=== PATIENT | male | born 1950 | race Caucasian/White ===

== ENCOUNTER 2017-11-21 09:15 | Day surgery (SDC) | payer BC ==
[2017-11-17 10:58] VITALS: BMI 28.6
[~2017-11-21 09:15] MED LIST: LACTATED RINGERS 1,000 ML IV SCH; LIDOCAINE 1% 20 ML VIAL (10MG/ML) FOR IV START INTRADERMA PRN; MIDAZOLAM 2 MG/2 ML VIAL IV PRN
[2017-11-21 10:15] VITALS: RESP 16; TEMP 97
[2017-11-21] MEDS ORDERED: GLYCOPYRROLATE 0.2 MG/ML 2 ML VIAL ONE (10:52)
[2017-11-21] MEDS ORDERED: LIDOCAINE 1% INJ 10MG/ML (20 ML MDV) ONE (10:52)
[2017-11-21] MEDS ORDERED: PROPOFOL 10 MG/ML 20 ML VIAL IV ONE (10:52)
--- NOTE | 2017-11-21 11:11 | P.PCN ---
Date of Procedure: 11/21/17 Procedure(s) Performed: Procedure: Esophagogastroduodenoscopy and biopsy. Preoperative diagnosis: Chronic reflux and dysphagia. Postoperative diagnosis: 1. Small sliding hiatal hernia with low-grade esophagitis but no strictures or ulcers or Posada's esophagus. 2. Mild antral gastritis. 3. Multiple biopsies obtained from the duodenum, antrum and esophagus. Preparation sedation: Was provided by anesthesia. Brief clinical history: The patient is a 66-year-old male who is scheduled for this evaluation because of intermittent dysphagia, especially when he is off his PPI. The patient has taken omeprazole for the last few years for reflux symptoms with good control of his symptoms. It seems that his dysphagia issues occurs whenever he tries to go off omeprazole. No weight loss or other alarm symptoms. He had an upper endoscopy more than 10 years ago. Procedure: With the patient on his left lateral decubitus position and after informed consent and adequate sedation, I passed the Olympus-GIF 160 video upper endoscope through the cricopharyngeus down the esophagus. GE junction was around 43 cm from the incisors and there was a small sliding hiatal hernia. The esophagus showed linear erosions covering most of the length of the esophagus consistent with LA grade B esophagitis with no ulcers, strictures or Posada's esophagus. The endoscope was then passed to the rest of the stomach which was insufflated with air and inspected in detail including the retroflex view in the cardia. There was some mottling and erythema in the antrum but no ulcers or erosions. Pyloric channel, duodenal bulb, post bulbar area and descending duodenum appeared within normal limits. I obtained biopsies from the duodenum, antrum and esophagus then the endoscope was withdrawn. The patient tolerated the procedure well. Plan: The patient was reassured. Will await biopsy results. I will see him in follow-up in the office and make additional recommendations based on his course. I will keep you updated on his progress.
[2017-11-21 12:03] VITALS: BP 143/84; PULSE 45
== END 2017-11-21 12:08 | disposition home or self-care (01) ==
LOC: ORWHC2ENDO 09:15
DX: K21.0 Gastro-esophageal reflux disease with esophagitis (principal); K29.50 Unspecified chronic gastritis without bleeding; K44.9 Diaphragmatic hernia without obstruction or gangrene; Z79.1 Long term (current) use of non-steroidal anti-inflammatories (NSAID); Z79.899 Other long term (current) drug therapy
CPT/HCPCS: 43239; 88305; J2001; J2704

== ENCOUNTER 2019-09-26 09:57 | Day surgery (SDC) | payer MEDICARE ==
[2019-09-25 08:29] VITALS: BMI 27.0
[~2019-09-26 09:57] MED LIST changes: +DEXAMETHASONE SOD PHOSPHATE 10 MG/ML 1 ML VIAL IV ONE; +HYDROmorphone 0.5 MG/0.5 ML SYRINGE IVP PRN; -LIDOCAINE 1% 20 ML VIAL (10MG/ML) FOR IV START INTRADERMA PRN; -MIDAZOLAM 2 MG/2 ML VIAL IV PRN; +ONDANSETRON 4 MG/2 ML VIAL IVP ONE
[2019-09-26 10:25] VITALS: TEMP 97.7
[2019-09-26] MEDS ORDERED: LIDOCAINE 1% (10MG/ML) FOR IV START INTRADERMA ONE (10:25)
[2019-09-26] MEDS ORDERED: PROPOFOL 10 MG/ML 20 ML VIAL IV ONE (11:10)
[2019-09-26 11:44] VITALS: PULSE 52
--- NOTE | 2019-09-26 11:44 | P.PCN ---
Date of Procedure: 09/26/19 Description of Procedure: BRIEF HISTORY: Patient is a 68-year-old male presenting for outpatient colonoscopy for colitis and abdominal pain. Reports recent problems with abdominal pain. Treated with antibiotic therapy for diverticulitis with improvement in symptoms. Last colonoscopy 6 years ago with polyp removed. PROCEDURE PERFORMED: Colonoscopy. PREOPERATIVE DIAGNOSIS: Abdominal pain, colitis, less colonoscopy 6 years ago. ESTIMATED BLOOD LOSS: Minimal. IV sedation per Anesthesia. PROCEDURE: After informed consent was obtained, the patient, was brought into the endoscopy unit. IV sedation was administered by Anesthesia under continuous monitoring. Digital rectal examination was normal. Initially the Olympus CF-190 flexible video colonoscope was then inserted in the rectum, gradually advanced into the cecum without any difficulty. Careful examination was performed as the scope was gradually being withdrawn. Ileocecal valve and the appendiceal orifice were visualized and appeared normal. Prep was excellent. Mucosa of the cecum, ascending colon, transverse colon, descending colon, sigmoid colon, and rectum appeared normal. Multiple small mouth diverticula noted throughout the colon. Retroflexion was performed in the rectum and no lesions were seen. The patient tolerated the procedure well. IMPRESSION: Normal-appearing colon from rectum to cecum. Mild pandiverticulosis. RECOMMENDATIONS: Findings of this examination were discussed with the patient. Okay to resume diet, would recommend high-fiber. Okay for medications. Would recommend patient continue regular screening interval for colonoscopies, repeat in 7 years..
[2019-09-26 12:09] VITALS: BP 127/78; RESP 18
== END 2019-09-26 12:11 | disposition home or self-care (01) ==
LOC: ORWHC2ENDO 09:57
PROVIDERS: ATTEND Internal Medicine
DX: K57.30 Diverticulosis of large intestine without perforation or abscess without bleeding (principal); K21.9 Gastro-esophageal reflux disease without esophagitis; Z86.010 Personal history of colon polyps; Z87.891 Personal history of nicotine dependence; Z88.2 Allergy status to sulfonamides; Z79.899 Other long term (current) drug therapy; Z98.890 Other specified postprocedural states; Z80.0 Family history of malignant neoplasm of digestive organs
CPT/HCPCS: 45378; J2704

== ENCOUNTER → 2021-09-30 | Outpatient (CLI) | payer MEDICARE ==
--- NOTE | 2021-10-01 09:19 | US ---
EXAMINATION TYPE: US thyroid st tissue head/neck DATE OF EXAM: 09/30/2021 COMPARISON: NONE CLINICAL HISTORY: E04.1 THYROID NODULE. h/o under developed left lobe per patient, he states h/o nodu les and biopsy, no imaging here GLAND SIZE: Right Lobe: 4.3 x 1.0 x 1.9 cm Overall Parenchyma: homogenous Left Lobe: 2.3 x 0.5 x 0.7 cm Overall Parenchyma: homogeneous Isthmus Thickness: 0.5 cm NODULES RIGHT: # of nodules measured on right: 0 LEFT: # of nodules measured on left: 0 ISTHMUS: # of nodules measured in the isthmus: 0 Bilateral neck scanned, no evidence of lymphadenopathy. IMPRESSION: 1. No suspicious thyroid abnormality.
== END | disposition home or self-care (01) ==
LOC: RADUSWWP 15:35
PROVIDERS: ATTEND Family Medicine
DX: E04.2 Nontoxic multinodular goiter (principal)
CPT/HCPCS: 76536

== ENCOUNTER → 2023-05-09 | Outpatient (CLI) | payer MEDICARE ==
[2023-05-09 09:03] LABS: African American GFR (CKD) >90 (>60 ml/min/1.73 sqM); Blood Urea Nitrogen 14 mg/dL (9-20); Non-African American GFR(CKD) 84 (>60 ml/min/1.73 sqM)
--- NOTE | 2023-05-09 10:03 | CT ---
EXAMINATION TYPE: CT chest w con CT DLP: 647 mGycm, Automated exposure control for dose reduction was used. DATE OF EXAM: 05/09/2023 9:17 AM COMPARISON: 01/08/2011 CLINICAL INDICATION:Male, 72 years old with history of R05.9 cough; PHH, cough TECHNIQUE: Multiple axial images were obtained through the chest. Sagittal and coronal reformats were created for review. Contrast used:100 mL of Isovue 300 with IV Contrast (None if empty) Oral contrast used: (None if empty) FINDINGS: LUNGS/ PLEURA: No focal consolidation, pneumothorax or pleural effusion. Streaky atelectasis in the l raissa bases. AIRWAY: Patent and unremarkable. HEART: Heart is mildly enlarged for size. MEDIASTINUM: No gross evidence of adenopathy. VASCULATURE: No aortic aneurysm. MUSCULOSKELETAL: Mild disc degeneration changes are present throughout the thoracolumbar spine. SOFT TISSUES/LYMPH NODES: Unremarkable. LOWER NECK: No significant findings. UPPER ABDOMEN: Right probable renal cyst. IMPRESSION: 1. No evidence for acute process. No finding to correlate with patient's chronic cough. 2. Mild cardiomegaly.
== END | disposition home or self-care (01) ==
LOC: RADCTMAIN 08:25
PROVIDERS: ATTEND Internal Medicine Critical Care Medicine
DX: I51.7 Cardiomegaly (principal); R05.9 Cough, unspecified
CPT/HCPCS: 82565; 84520; 71260; 36415; Q9967

== ENCOUNTER → 2023-07-14 | Outpatient (CLI) | payer MEDICARE ==
[2023-07-14 12:02] LABS: African American GFR (CKD) >90 (>60 ml/min/1.73 sqM); Blood Urea Nitrogen 15 mg/dL (9-20); Non-African American GFR(CKD) 84 (>60 ml/min/1.73 sqM)
--- NOTE | 2023-07-14 14:43 | CT ---
EXAMINATION TYPE: CT lumbar spine w con DATE OF EXAM: 07/14/2023 COMPARISON: None HISTORY: back pain, no injury CT DLP: 1048.4 mGycm CONTRAST: CT scan of the lumbar is performed with IV Contrast, patient injected with 100 mL of Isovue 300. TECHNIQUE: CT of the lumbar spine is performed on a spiral scan at 3 mm thick sections. Reconstructed images are performed in the coronal and sagittal planes. FINDINGS: T12-L1: No focal disc herniation or significant disc bulge is evident. No spinal canal stenosis or neural foraminal stenosis is present. L1-L2: No focal disc herniation or significant disc bulge is evident. No spinal canal stenosis or n eural foraminal stenosis is present L2-L3: No focal disc herniation or significant disc bulge is evident. No spinal canal stenosis. Mil d foraminal narrowing is present. L3-L4: There is loss of disc height is well. Mild endplate spurring is from the inferior endplate of L3. No AP spinal canal stenosis is present. There is moderate bilat eral foraminal narrowing L4-L5: There is loss of disc height at this level. No AP spinal canal stenosis is present. Severe kurt ateral foraminal stenosis is present. L5-S1: No focal disc herniation is evident. There is loss of disc height at this level. No spinal can al stenosis present. Severe bilateral foraminal stenosis is present, right greater than left. Grade 1 retrolisthesis of L3 on L4 is present. Vertebral body heights are preserved. IMPRESSION: 1. Grade 1 retrolisthesis of L3 on L4. 2. Multilevel moderate to severe foraminal narrowing. This appears greatest at the L4-5 level. 3. Degenerative disc changes with loss of disc height throughout the lumbar spine greatest at L3-4
== END | disposition home or self-care (01) ==
LOC: RADCTMAIN 11:24
PROVIDERS: ATTEND Family Medicine
DX: M43.16 Spondylolisthesis, lumbar region (principal); M99.73 Connective tissue and disc stenosis of intervertebral foramina of lumbar region; M51.36 Other intervertebral disc degeneration, lumbar region; M48.061 Spinal stenosis, lumbar region without neurogenic claudication
CPT/HCPCS: 82565; 84520; 72132; 36415; Q9967

== ENCOUNTER → 2024-05-24 | Outpatient (CLI) | payer MEDICARE ==
--- NOTE | 2024-05-24 10:35 | US ---
EXAMINATION TYPE: US arterial LE single level DATE OF EXAM: 05/24/2024 10:12 AM COMPARISONS: None. CLINICAL INDICATION: Male, 73 years old with history of I73.9 PERIPHERAL VASCULAR DISEASE; TECHNIQUE: Systolic pressures were taken of the upper and lower extremity arteries with ankle-brachia l indices calculated bilaterally. History of: Smoker: Previous Hypertension: No Diabetic: No Hyperlipidemia: Yes TIA/CVA: No Previous Vascular Surgery: No HI: No Vascular Ulcers: No Claudication: No Gangrene: No FINDINGS: Doppler Waveforms: Right: Biphasic Left: Multiphasic Brachial Artery systolic pressure: Right: 129 Left: 143 Posterior Tibial artery systolic pressure: Right: 179 Left: 157 Dorsalis Pedis artery systolic pressure: Right: 171 Left: 163 Ankle-Brachial Indices: Right: 1.25 Left: 1.14 IMPRESSION: JUS: Right: Normal 0.9 - 1.4, Recommendation: None Left: Normal 0.9 - 1.4, Recommendation: None [facility], , 05/24/2024 10:33 AM
== END | disposition home or self-care (01) ==
LOC: RADUSWWP 09:41
PROVIDERS: ATTEND Family Medicine
DX: I73.9 Peripheral vascular disease, unspecified (principal)
CPT/HCPCS: 93922